=== PATIENT | male | born 1955 | race Caucasian/White ===

== ENCOUNTER 2023-05-05 15:11 | Inpatient (IN) | payer OTHER ==
[2023-05-05 15:59] LABS: #Basophils 0.1 thou/uL (0.0-0.2); #Eosinphils 0.2 thou/uL (0.0-0.7); #Monocytes 0.7 thou/uL (0.11-0.59); #Neutrophils 6.6 thou/uL (1.40-6.50); %Basophils 0.6 % (0.0-1.0); %Eosinophils 1.8 % (0.0-10.0); %Lymphocytes 24.1 % (21.0-51.0); %Monocytes 6.9 % (0.0-10.0); %Neutrophils 66.2 % (42.0-75.0); Hematocrit 43.1 % (42.0-52.0); Hemoglobin 14.2 g/dL (14.0-18.0); Mean Corpuscular HGB CONC 32.9 g/dL (32.0-36.0); Mean Corpuscular Hemoglobin 30.9 pg (27.0-31.0); Mean Corpuscular Volume 93.7 fl (78.0-98.0); Mean Platelet Volume 9.7 fL (7.4-10.4); Platelet Count 255 10x3/uL (130-400); RBC Distribution Width 12.5 % (11.5-14.5)
[2023-05-05] MEDS ORDERED: LORazepam 2 MG/ML SYR.(CARPUJECT) ONE ×2 (16:24→19:20)
[2023-05-05 16:28] LABS: ALT (SGPT) 23 U/L (8-55); AST (SGOT) 22 U/L (5-34); Albumin 4.6 g/dL (3.4-4.8); Alkaline Phosphatase 85 U/L (40-110); Anion Gap 12 mmol/L (10-20); BUN (Urea Nitrogen) 19 mg/dL (8.4-25.7); Bilirubin, Total 0.5 mg/dL (0.2-1.2); Calc. Creatinine Clearance 0 mL/min (70-130); Calcium 9.7 mg/dL (7.8-10.44); Carbon Dioxide 23 mmol/L (23-31); Chloride 106 mmol/L (98-107); Estimated GFR 65; Globulin 2.3 g/dL (2.4-3.5); Glucose 90 mg/dL (80-115); Potassium 3.9 mmol/L (3.5-5.1); Protein, Total 6.9 g/dL (5.8-8.1); Sodium 137 mmol/L (136-145)
[2023-05-05 16:32] LABS: Troponin I Less than 0.010 ng/mL (< 0.028)
[2023-05-05 18:39] LABS: Bacteria/HPF None Seen HPF (None Seen); Bilirubin Negative (Negative); Blood, Urine Negative (Negative); CAUTI Indications for Culture Alt mental st,lethar; Clarity Clear (Clear); Glucose, Urine (Dipstick) 70 mg/dL (Negative); Ketone, Urine Negative (Negative); Leukocyte Negative Leu/uL (Negative); Nitrite Negative (Negative); Protein, Urine (Dipstick) Negative (Neg-Trace); RBC/HPF None Seen HPF (0-3); Specific Gravity, Urine 1.023 (1.002-1.036); Squamous Epithelial None Seen HPF (0-3); Urobilinogen Normal mg/dL (Less than 2); WBC/HPF 0-3 HPF (0-3)
[2023-05-05 18:47] LABS: Amphetamine Detected (NotDetected); Barbiturates Screen Not Detected (NotDetected); Benzodiazepine Screen Not Detected (NotDetected); Cocaine Metabolite Screen Not Detected (NotDetected); Methadone Not Detected (NotDetected); Methamphetamine Detected (NotDetected); Opiate Screen Not Detected (NotDetected); Oxycodone Screen Not Detected (NotDetected); Phencyclidine (PCP) Not Detected (NotDetected); THC/Cannabinoid Screen Not Detected (NotDetected); Tricyclic Screen Not Detected (NotDetected)
[2023-05-05 18:52] LABS: Urine Culture Reflex No No
[2023-05-05] MEDS ORDERED: Sodium Chloride 0.9% 1,000 ML IV SCH (20:45)
[2023-05-05] MEDS ORDERED: Acetaminophen 325 MG TAB PO PRN (22:23)
[2023-05-05] MEDS ORDERED: Ondansetron PF 4 MG/2 ML Vial IVP PRN (22:23)
[2023-05-05] MEDS ORDERED: Dexmedetomidine In 0.9 % NaCl 100 ML IVPB SCH (22:30)
[2023-05-06] MEDS: Ipratropium/Albuterol 3 ML NEB NEB SCH ×2 (02:15→07:26)
[2023-05-06] MEDS ORDERED: hydrALAZINE 20 MG/ML VIAL SLOW IVP PRN (02:39)
[2023-05-06] MEDS ORDERED: Labetalol HCl 100 MG/20 ML VIAL SLOW IVP PRN (02:39)
[2023-05-06] MEDS ORDERED: Sodium Chloride 0.9% 1,000 ML IV SCH (03:00)
[2023-05-06] MEDS: Nicotine 14 MG PATCH TD SCH (03:50)
[2023-05-06 05:06] LABS: #Basophils 0.1 thou/uL (0.0-0.2); #Eosinphils 0.2 thou/uL (0.0-0.7); #Monocytes 0.9 thou/uL (0.11-0.59); #Neutrophils 6.7 thou/uL (1.40-6.50); %Basophils 0.6 % (0.0-1.0); %Eosinophils 1.5 % (0.0-10.0); %Lymphocytes 26.7 % (21.0-51.0); %Monocytes 8.4 % (0.0-10.0); %Neutrophils 62.5 % (42.0-75.0); Hematocrit 41.2 % (42.0-52.0); Hemoglobin 13.4 g/dL (14.0-18.0); Mean Corpuscular HGB CONC 32.5 g/dL (32.0-36.0); Mean Corpuscular Hemoglobin 30.1 pg (27.0-31.0); Mean Corpuscular Volume 92.6 fl (78.0-98.0); Mean Platelet Volume 9.7 fL (7.4-10.4); Platelet Count 248 10x3/uL (130-400); RBC Distribution Width 12.4 % (11.5-14.5); Red Blood Cell (RBC) Count 4.45 mill/uL (4.70-6.10); White Blood Cell (WBC) Count 10.7 10x3/uL (4.8-10.8)
[2023-05-06 05:12] LABS: Hemoglobin A1c 5.7 % (4.0-6.0)
[2023-05-06 05:37] LABS: Anion Gap 17 mmol/L (10-20); BUN (Urea Nitrogen) 20 mg/dL (8.4-25.7); Calc. Creatinine Clearance 58 mL/min (70-130); Calcium 9.1 mg/dL (7.8-10.44); Carbon Dioxide 18 mmol/L (23-31); Cardiac Risk 4.7 (Less than 4.5); Chloride 107 mmol/L (98-107); Cholesterol 207 mg/dl (< 200 Desired); Estimated GFR 72; Glucose 92 mg/dL (80-115); HDL Cholesterol 44 mg/dL (>60 Neg Risk); LDL Cholesterol, Calculated 145 mg/dL; Potassium 3.9 mmol/L (3.5-5.1); Sodium 138 mmol/L (136-145); Triglycerides 88 mg/dL (Less than 150)
[2023-05-06] MEDS ORDERED: Ipratropium/Albuterol 3 ML NEB NEB PRN (10:25)
[2023-05-06] MEDS: Aspirin 81 mg Enteric Coated Tablet PO SCH (11:03)
[2023-05-06] MEDS: Famotidine/PF 20 mg/2ml Vial SLOW IVP SCH ×2 (11:21→20:14)
[2023-05-06] MEDS: Dexmedetomidine 400 MCG, Admixture Fee 1 EACH in Sodium Chloride 0.9% 96 ML IVPB SCH (18:17)
[2023-05-06] MEDS: Atorvastatin Calcium 40 MG TAB PO SCH (20:14)
[2023-05-06] MEDS ORDERED: OLANZapine 10 MG VIAL IM SCH (21:00)
[2023-05-06] MEDS ORDERED: Sterile Water 10 ML VIAL FS PRN (21:15)
[2023-05-07] MEDS: Nicotine 14 MG PATCH TD SCH (03:22)
[2023-05-07 04:13] LABS: #Basophils 0.1 thou/uL (0.0-0.2); #Eosinphils 0.2 thou/uL (0.0-0.7); #Monocytes 1.4 thou/uL (0.11-0.59); #Neutrophils 7.7 thou/uL (1.40-6.50); %Basophils 0.6 % (0.0-1.0); %Eosinophils 1.5 % (0.0-10.0); %Lymphocytes 28.4 % (21.0-51.0); %Monocytes 10.6 % (0.0-10.0); %Neutrophils 58.7 % (42.0-75.0); Hematocrit 45.2 % (42.0-52.0); Hemoglobin 14.5 g/dL (14.0-18.0); Mean Corpuscular HGB CONC 32.1 g/dL (32.0-36.0); Mean Corpuscular Hemoglobin 29.8 pg (27.0-31.0); Mean Platelet Volume 9.6 fL (7.4-10.4); Platelet Count 228 10x3/uL (130-400); RBC Distribution Width 12.3 % (11.5-14.5); Red Blood Cell (RBC) Count 4.86 mill/uL (4.70-6.10); White Blood Cell (WBC) Count 13.1 10x3/uL (4.8-10.8)
[2023-05-07 04:38] LABS: Anion Gap 16 mmol/L (10-20); BUN (Urea Nitrogen) 23 mg/dL (8.4-25.7); Calc. Creatinine Clearance 62 mL/min (70-130); Calcium 9.7 mg/dL (7.8-10.44); Carbon Dioxide 16 mmol/L (23-31); Chloride 110 mmol/L (98-107); Estimated GFR 77; Glucose 70 mg/dL (80-115); Potassium 4.7 mmol/L (3.5-5.1); Sodium 137 mmol/L (136-145)
[2023-05-07] MEDS: Aspirin 81 mg Enteric Coated Tablet PO SCH (08:19)
[2023-05-07] MEDS: Famotidine/PF 20 mg/2ml Vial SLOW IVP SCH ×2 (08:19→20:11)
[2023-05-07] MEDS: Dexmedetomidine 400 MCG, Admixture Fee 1 EACH in Sodium Chloride 0.9% 96 ML IVPB SCH (09:37)
[2023-05-07] MEDS: Lorazepam 2 MG/ML VIAL SLOW IVP PRN ×2 (16:31→23:37)
[2023-05-07] MEDS: Dextrose 5 %-0.45 % NaCl 1,000 ML IV SCH (17:04)
[2023-05-07] MEDS: Atorvastatin Calcium 40 MG TAB PO SCH (20:09)
[2023-05-08] MEDS: Dextrose 5 %-0.45 % NaCl 1,000 ML IV SCH ×2 (02:24→15:52)
[2023-05-08] MEDS: Dexmedetomidine 400 MCG, Admixture Fee 1 EACH in Sodium Chloride 0.9% 96 ML IVPB SCH (02:24)
[2023-05-08] MEDS: Nicotine 14 MG PATCH TD SCH (02:24)
[2023-05-08 07:03] LABS: #Basophils 0.1 thou/uL (0.0-0.2); #Eosinphils 0.3 thou/uL (0.0-0.7); #Monocytes 0.8 thou/uL (0.11-0.59); #Neutrophils 4.2 thou/uL (1.40-6.50); %Basophils 0.8 % (0.0-1.0); %Eosinophils 3.2 % (0.0-10.0); %Lymphocytes 31.7 % (21.0-51.0); %Monocytes 9.8 % (0.0-10.0); %Neutrophils 54.4 % (42.0-75.0); Hematocrit 43.6 % (42.0-52.0); Hemoglobin 14.3 g/dL (14.0-18.0); Mean Corpuscular HGB CONC 32.8 g/dL (32.0-36.0); Mean Corpuscular Hemoglobin 30.4 pg (27.0-31.0); Mean Corpuscular Volume 92.8 fl (78.0-98.0); Mean Platelet Volume 9.7 fL (7.4-10.4); Platelet Count 226 10x3/uL (130-400); RBC Distribution Width 12.2 % (11.5-14.5); White Blood Cell (WBC) Count 7.7 10x3/uL (4.8-10.8)
[2023-05-08 07:40] LABS: Anion Gap 12 mmol/L (10-20); BUN (Urea Nitrogen) 17 mg/dL (8.4-25.7); Calc. Creatinine Clearance 68 mL/min (70-130); Calcium 9.4 mg/dL (7.8-10.44); Carbon Dioxide 19 mmol/L (23-31); Chloride 109 mmol/L (98-107); Estimated GFR 89; Glucose 85 mg/dL (80-115); Potassium 3.3 mmol/L (3.5-5.1); Sodium 137 mmol/L (136-145)
[2023-05-08] MEDS: Aspirin 81 mg Enteric Coated Tablet PO SCH (08:03)
[2023-05-08] MEDS: Famotidine/PF 20 mg/2ml Vial SLOW IVP SCH ×2 (08:03→20:21)
[2023-05-08] MEDS: Lorazepam 2 MG/ML VIAL SLOW IVP PRN ×3 (11:00→21:35)
[2023-05-08] MEDS ORDERED: Lorazepam 2 MG/ML VIAL SLOW IVP SCH (11:45)
[2023-05-08 12:09] LABS: ALT (SGPT) 21 U/L (8-55); AST (SGOT) 33 U/L (5-34); Alkaline Phosphatase 76 U/L (40-110); Bilirubin, Direct 0.2 mg/dL (0.1-0.3); Bilirubin, Total 0.5 mg/dL (0.2-1.2); Protein, Total 6.5 g/dL (5.8-8.1)
[2023-05-08 12:47] LABS: PTT 29.8 sec (22.9-36.1)
[2023-05-08 12:49] LABS: D-Dimer Test 0.62 *mcg/mL (0.27-0.43)
[2023-05-08 12:51] LABS: Troponin I Less than 0.010 ng/mL (< 0.028)
[2023-05-08 13:18] LABS: Actual Bicarbonate (HCO3v) 18.2 mEq/L (22-28); Base Excess -5.7 mEq/L (-2.0 to +3.0); Chloride (VBG) 107 mmol/L (98-106); Hematocrit-VBG 46 % (42.0-52.0); Hemoglobin (Hb) 15.8 g/dL (12.6-17.4); Potassium (VBG) 3.68 mmol/L (3.70-5.30); Sodium 140 mmol/L (133-146); pH (venous) 7.378 (7.32-7.43)
[2023-05-08] MEDS ORDERED: OLANZapine 10 MG VIAL IM SCH (19:45)
[2023-05-08] MEDS ORDERED: Sterile Water 10 ML VIAL FS PRN (20:00)
[2023-05-08] MEDS: Atorvastatin Calcium 40 MG TAB PO SCH (20:21)
[2023-05-08] MEDS ORDERED: Lorazepam 2 MG/ML VIAL SLOW IVP PRN (22:37)
[2023-05-09] MEDS: Dextrose 5 %-0.45 % NaCl 1,000 ML IV SCH ×3 (00:38→20:28)
[2023-05-09] MEDS: Nicotine 14 MG PATCH TD SCH (03:05)
[2023-05-09] MEDS: Dexmedetomidine 400 MCG, Admixture Fee 1 EACH in Sodium Chloride 0.9% 96 ML IVPB SCH ×2 (03:05→21:14)
[2023-05-09 04:09] LABS: Hematocrit 39.2 % (42.0-52.0); Hemoglobin 12.8 g/dL (14.0-18.0); Mean Corpuscular HGB CONC 32.7 g/dL (32.0-36.0); Mean Corpuscular Hemoglobin 31.1 pg (27.0-31.0); Mean Corpuscular Volume 95.1 fl (78.0-98.0); Mean Platelet Volume 10.3 fL (7.4-10.4); Platelet Count 152 10x3/uL (130-400); RBC Distribution Width 12.4 % (11.5-14.5); Red Blood Cell (RBC) Count 4.12 mill/uL (4.70-6.10)
[2023-05-09 04:17] LABS: Delete Auto Diff?? YES; Manual Diff?? YES
[2023-05-09 04:51] LABS: Anion Gap 15 mmol/L (10-20); BUN (Urea Nitrogen) 12 mg/dL (8.4-25.7); Calc. Creatinine Clearance 73 mL/min (70-130); Calcium 9.4 mg/dL (7.8-10.44); Carbon Dioxide 14 mmol/L (23-31); Chloride 112 mmol/L (98-107); Estimated GFR 94; Glucose 103 mg/dL (80-115); Magnesium 1.9 mg/dL (1.6-2.6); Potassium 4.2 mmol/L (3.5-5.1); Sodium 137 mmol/L (136-145)
[2023-05-09 05:07] LABS: CellaVision Operator ID lab.sh2; Lymphocytes 15 % (21-51); Neutrophil 85 % (42-75); Platelet Adequacy Comment Platelets Normal; RBC Morphology Within Normal Limits; Smudge Cells 7.8 %; Total Cell Count 102
[2023-05-09] MEDS: Aspirin 81 mg Enteric Coated Tablet PO SCH (08:28)
[2023-05-09] MEDS: Famotidine/PF 20 mg/2ml Vial SLOW IVP SCH ×2 (08:28→20:28)
[2023-05-09 11:49] LABS: Actual Bicarbonate (HCO3v) 16.5 mEq/L (22-28); Base Excess -5.6 mEq/L (-2.0 to +3.0); Calcium, Ionized (venous) 1.06 mmol/L (1.16-1.32); Chloride (VBG) 108 mmol/L (98-106); Hematocrit-VBG 47 % (42.0-52.0); Hemoglobin (Hb) 16.1 g/dL (12.6-17.4); Potassium (VBG) 4.81 mmol/L (3.70-5.30); Sodium 137 mmol/L (133-146); pH (venous) 7.434 (7.32-7.43)
[2023-05-09 12:12] LABS: Troponin I Less than 0.010 ng/mL (< 0.028)
[2023-05-09] MEDS: Lorazepam 2 MG/ML VIAL SLOW IVP PRN ×2 (13:57→21:14)
[2023-05-09] MEDS ORDERED: Digoxin 0.5 MG/2 ML AMP SLOW IVP SCH (14:00)
[2023-05-09] MEDS: Atorvastatin Calcium 40 MG TAB PO SCH (20:28)
[2023-05-09] MEDS: Morphine 2 MG/ML VIAL SLOW IVP PRN (23:12)
[2023-05-10] MEDS: Nicotine 14 MG PATCH TD SCH (02:24)
[2023-05-10] MEDS: Morphine 2 MG/ML VIAL SLOW IVP PRN ×3 (03:20→21:30)
[2023-05-10] MEDS: Dextrose 5 %-0.45 % NaCl 1,000 ML IV SCH (05:49)
[2023-05-10 06:38] LABS: #Eosinphils 0.3 thou/uL (0.0-0.7); #Monocytes 0.8 thou/uL (0.11-0.59); #Neutrophils 5.4 thou/uL (1.40-6.50); %Basophils 0.5 % (0.0-1.0); %Eosinophils 3.2 % (0.0-10.0); %Lymphocytes 22.9 % (21.0-51.0); %Monocytes 9.8 % (0.0-10.0); %Neutrophils 63.2 % (42.0-75.0); Hematocrit 43.7 % (42.0-52.0); Hemoglobin 14.3 g/dL (14.0-18.0); Mean Corpuscular HGB CONC 32.7 g/dL (32.0-36.0); Mean Corpuscular Hemoglobin 30.6 pg (27.0-31.0); Mean Corpuscular Volume 93.4 fl (78.0-98.0); Mean Platelet Volume 9.9 fL (7.4-10.4); Platelet Count 230 10x3/uL (130-400); RBC Distribution Width 12.6 % (11.5-14.5); Red Blood Cell (RBC) Count 4.68 mill/uL (4.70-6.10); White Blood Cell (WBC) Count 8.6 10x3/uL (4.8-10.8)
[2023-05-10 07:07] LABS: Phosphorus 2.7 mg/dL (2.3-4.7)
[2023-05-10 07:10] LABS: Anion Gap 10 mmol/L (10-20); BUN (Urea Nitrogen) 8 mg/dL (8.4-25.7); Calc. Creatinine Clearance 68 mL/min (70-130); Calcium 8.8 mg/dL (7.8-10.44); Carbon Dioxide 22 mmol/L (23-31); Chloride 110 mmol/L (98-107); Estimated GFR 89; Glucose 89 mg/dL (80-115); Magnesium 1.7 mg/dL (1.6-2.6); Potassium 3.7 mmol/L (3.5-5.1); Sodium 138 mmol/L (136-145)
[2023-05-10] MEDS: Famotidine/PF 20 mg/2ml Vial SLOW IVP SCH ×2 (08:23→21:33)
[2023-05-10] MEDS: Aspirin 81 mg Enteric Coated Tablet PO SCH (08:24)
[2023-05-10] MEDS ORDERED: Digoxin 0.25 MG TAB PO SCH (09:00)
[2023-05-10] MEDS ORDERED: Magnesium 2 GM/50 ML(in water) 2 GM in Premix 1 BAG IVPB SCH (10:45)
[2023-05-10] MEDS ORDERED: dilTIAZem 125 MG, Admixture Fee 1 EACH in Sodium Chloride 0.9% 100 ML IVPB SCH (12:00)
[2023-05-10] MEDS ORDERED: dilTIAZem 25 MG/5 ML VIAL SLOW IVP SCH (12:00)
[2023-05-10] MEDS ORDERED: dilTIAZem 125 MG in Sodium Chloride 0.9% 100 ML IVPB SCH (12:00)
[2023-05-10] MEDS: D5W-AA 4.25% with LYTES 1,000 ML IV SCH (12:49)
[2023-05-10] MEDS: Lorazepam 2 MG/ML VIAL SLOW IVP PRN ×2 (15:16→19:28)
[2023-05-10] MEDS: Atorvastatin Calcium 40 MG TAB PO SCH (20:25)
[2023-05-11] MEDS: Lorazepam 2 MG/ML VIAL SLOW IVP PRN ×5 (00:04→21:50)
[2023-05-11] MEDS: Nicotine 14 MG PATCH TD SCH (04:03)
[2023-05-11] MEDS: D5W-AA 4.25% with LYTES 1,000 ML IV SCH ×2 (04:24→12:23)
[2023-05-11 05:07] LABS: #Eosinphils 0.2 thou/uL (0.0-0.7); #Monocytes 0.9 thou/uL (0.11-0.59); #Neutrophils 6.6 thou/uL (1.40-6.50); %Basophils 0.4 % (0.0-1.0); %Eosinophils 1.8 % (0.0-10.0); %Lymphocytes 18.3 % (21.0-51.0); %Monocytes 9.2 % (0.0-10.0); %Neutrophils 70.1 % (42.0-75.0); Hematocrit 39.1 % (42.0-52.0); Hemoglobin 12.9 g/dL (14.0-18.0); Mean Corpuscular Hemoglobin 29.9 pg (27.0-31.0); Mean Corpuscular Volume 90.7 fl (78.0-98.0); Mean Platelet Volume 10.2 fL (7.4-10.4); Platelet Count 224 10x3/uL (130-400); RBC Distribution Width 12.3 % (11.5-14.5); Red Blood Cell (RBC) Count 4.31 mill/uL (4.70-6.10); White Blood Cell (WBC) Count 9.4 10x3/uL (4.8-10.8)
[2023-05-11 05:17] LABS: Anion Gap 13 mmol/L (10-20); BUN (Urea Nitrogen) 12 mg/dL (8.4-25.7); Calc. Creatinine Clearance 71 mL/min (70-130); Calcium 9.1 mg/dL (7.8-10.44); Carbon Dioxide 20 mmol/L (23-31); Chloride 108 mmol/L (98-107); Estimated GFR 93; Glucose 107 mg/dL (80-115); Potassium 3.4 mmol/L (3.5-5.1); Sodium 138 mmol/L (136-145)
[2023-05-11 05:23] LABS: Phosphorus 3.5 mg/dL (2.3-4.7)
[2023-05-11] MEDS: Famotidine/PF 20 mg/2ml Vial SLOW IVP SCH ×2 (08:36→21:48)
[2023-05-11] MEDS: Morphine 2 MG/ML VIAL SLOW IVP PRN ×4 (08:36→21:49)
[2023-05-11] MEDS: Aspirin 81 mg Enteric Coated Tablet PO SCH (08:37)
[2023-05-11] MEDS: Digoxin 0.125 MG TAB PO SCH (08:37)
[2023-05-11] MEDS: Dexmedetomidine 400 MCG, Admixture Fee 1 EACH in Sodium Chloride 0.9% 96 ML IVPB SCH (08:49)
[2023-05-11] MEDS: Atorvastatin Calcium 40 MG TAB PO SCH (21:30)
[2023-05-12] MEDS: Nicotine 14 MG PATCH TD SCH (02:45)
[2023-05-12] MEDS: Morphine 2 MG/ML VIAL SLOW IVP PRN ×2 (02:45→12:15)
[2023-05-12] MEDS: Lorazepam 2 MG/ML VIAL SLOW IVP PRN ×3 (02:45→19:51)
[2023-05-12 04:12] LABS: #Basophils 0.1 thou/uL (0.0-0.2); #Eosinphils 0.4 thou/uL (0.0-0.7); #Monocytes 0.8 thou/uL (0.11-0.59); #Neutrophils 7.4 thou/uL (1.40-6.50); %Basophils 0.5 % (0.0-1.0); %Eosinophils 3.6 % (0.0-10.0); %Lymphocytes 15.4 % (21.0-51.0); %Monocytes 7.8 % (0.0-10.0); %Neutrophils 72.4 % (42.0-75.0); Hematocrit 40.9 % (42.0-52.0); Hemoglobin 13.5 g/dL (14.0-18.0); Mean Corpuscular Hemoglobin 30.1 pg (27.0-31.0); Mean Corpuscular Volume 91.1 fl (78.0-98.0); Mean Platelet Volume 9.9 fL (7.4-10.4); Platelet Count 226 10x3/uL (130-400); RBC Distribution Width 12.4 % (11.5-14.5); Red Blood Cell (RBC) Count 4.49 mill/uL (4.70-6.10); White Blood Cell (WBC) Count 10.3 10x3/uL (4.8-10.8)
[2023-05-12 04:33] LABS: Phosphorus 3.3 mg/dL (2.3-4.7)
[2023-05-12 04:34] LABS: Anion Gap 14 mmol/L (10-20); BUN (Urea Nitrogen) 19 mg/dL (8.4-25.7); Calc. Creatinine Clearance 80 mL/min (70-130); Calcium 9.1 mg/dL (7.8-10.44); Carbon Dioxide 21 mmol/L (23-31); Chloride 105 mmol/L (98-107); Digoxin 0.27 ng/mL (0.8-2.0); Estimated GFR 96; Glucose 92 mg/dL (80-115); Potassium 3.5 mmol/L (3.5-5.1); Sodium 136 mmol/L (136-145)
[2023-05-12] MEDS: D5W-AA 4.25% with LYTES 1,000 ML IV SCH ×2 (05:34→14:38)
[2023-05-12] MEDS ORDERED: Digoxin 0.25 MG TAB PO SCH (09:00)
[2023-05-12] MEDS ORDERED: Digoxin 0.125 MG TAB PO SCH (09:06)
[2023-05-12] MEDS: Famotidine/PF 20 mg/2ml Vial SLOW IVP SCH ×2 (11:14→20:09)
[2023-05-12] MEDS: Aspirin 81 mg Enteric Coated Tablet PO SCH (11:14)
[2023-05-12] MEDS: Digoxin 0.125 MG TAB PO SCH (11:43)
[2023-05-12 14:07] VITALS: BP 129/100
[2023-05-12] MEDS: Atorvastatin Calcium 40 MG TAB PO SCH (20:09)
[2023-05-13] MEDS: Morphine 2 MG/ML VIAL SLOW IVP PRN ×2 (01:39→10:42)
[2023-05-13] MEDS: D5W-AA 4.25% with LYTES 1,000 ML IV SCH ×2 (01:40→14:56)
[2023-05-13] MEDS: Nicotine 14 MG PATCH TD SCH (01:40)
[2023-05-13 05:01] LABS: #Basophils 0.1 thou/uL (0.0-0.2); #Eosinphils 0.2 thou/uL (0.0-0.7); #Neutrophils 10.4 thou/uL (1.40-6.50); %Basophils 0.4 % (0.0-1.0); %Eosinophils 1.8 % (0.0-10.0); %Lymphocytes 11.3 % (21.0-51.0); %Monocytes 7.8 % (0.0-10.0); %Neutrophils 78.4 % (42.0-75.0); Hematocrit 42.7 % (42.0-52.0); Hemoglobin 14.5 g/dL (14.0-18.0); Mean Corpuscular Hemoglobin 30.8 pg (27.0-31.0); Mean Corpuscular Volume 90.7 fl (78.0-98.0); Mean Platelet Volume 10.1 fL (7.4-10.4); Platelet Count 250 10x3/uL (130-400); RBC Distribution Width 12.3 % (11.5-14.5); Red Blood Cell (RBC) Count 4.71 mill/uL (4.70-6.10); White Blood Cell (WBC) Count 13.3 10x3/uL (4.8-10.8)
[2023-05-13 05:23] LABS: Phosphorus 3.6 mg/dL (2.3-4.7)
[2023-05-13 05:26] LABS: Anion Gap 13 mmol/L (10-20); BUN (Urea Nitrogen) 23 mg/dL (8.4-25.7); Calc. Creatinine Clearance 75 mL/min (70-130); Calcium 9.5 mg/dL (7.8-10.44); Carbon Dioxide 23 mmol/L (23-31); Chloride 101 mmol/L (98-107); Estimated GFR 95; Glucose 103 mg/dL (80-115); Magnesium 2.2 mg/dL (1.6-2.6); Potassium 3.9 mmol/L (3.5-5.1); Sodium 133 mmol/L (136-145)
[2023-05-13 07:48] VITALS: TEMP 97.8
[2023-05-13] MEDS ORDERED: Digoxin 0.5 MG/2 ML AMP SLOW IVP SCH (09:00)
[2023-05-13 09:44] VITALS: BMI 19.9
[2023-05-13] MEDS: Aspirin 81 mg Enteric Coated Tablet PO SCH (10:43)
[2023-05-13] MEDS: Famotidine/PF 20 mg/2ml Vial SLOW IVP SCH (10:43)
[2023-05-13] MEDS: Lorazepam 2 MG/ML VIAL SLOW IVP PRN (14:55)
== END 2023-05-13 15:01 | disposition hospice, inpatient (51) | DRG 64 ==
LOC: ERS 15:11 → ERHOLD 20:23 → IMCU/EMU 05-06 01:47
PROVIDERS: ADMIT Internal Medicine; ATTEND Family Medicine
PROC: 0T9B70Z Drainage of Bladder with Drainage Device, Via Natural or Artificial Opening (ICD-10-PCS; principal; 2023-05-05)
PROC: 4A00X4Z Measurement of Central Nervous Electrical Activity, External Approach (ICD-10-PCS; 2023-05-06)
PROC: 4A133R1 Monitoring of Arterial Saturation, Peripheral, Percutaneous Approach (ICD-10-PCS; 2023-05-08)
DX: I63.9 Cerebral infarction, unspecified (principal); G92.8 Other toxic encephalopathy; I48.19 Other persistent atrial fibrillation; Z51.5 Encounter for palliative care; Z66 Do not resuscitate; E78.00 Pure hypercholesterolemia, unspecified; F15.10 Other stimulant abuse, uncomplicated; J43.9 Emphysema, unspecified; Z98.890 Other specified postprocedural states; F17.210 Nicotine dependence, cigarettes, uncomplicated; F03.90 Unspecified dementia, unspecified severity, without behavioral disturbance, psychotic disturbance, mood disturbance, and anxiety; Z91.148 Patient's other noncompliance with medication regimen for other reason; Z79.82 Long term (current) use of aspirin; Z79.899 Other long term (current) drug therapy; D72.829 Elevated white blood cell count, unspecified; R00.1 Bradycardia, unspecified
CPT/HCPCS: 36415; 36416; 51701; 70450; 71045; 80048; 80053; 80061; 80076; 80162; 80306; 81001; 82805; 83036; 83605; 83735; 83880; 84100; 84145; 84484; 85025; 85379; 85610; 85730; 86850; 86900; 86901; 87040; 93005; 93010; 93306; 93880; 94640; 95711; 95819; 96361; 96365; 96375; 96376; J1160; J1650; J2060; J2272; J3475; J3490; J7042; J7050; J7620; S0028

== ENCOUNTER 2023-05-13 15:22 | Inpatient (IN) | payer OTHER ==
[2023-05-13 16:03] VITALS: BMI 20.6
[2023-05-13] MEDS ORDERED: Acetaminophen 650 MG Suppository PR PRN (16:15)
[2023-05-13] MEDS ORDERED: Scopolamine 1 mg/72 hour Patch TOP PRN (16:16)
[2023-05-13] MEDS ORDERED: diphenhydrAMINE 25 MG CAP PO PRN (16:16)
[2023-05-13] MEDS ORDERED: Haloperidol 1 MG TAB PO PRN (16:17)
[2023-05-13] MEDS ORDERED: Ondansetron PF 4 MG/2 ML Vial IVP PRN (16:17)
[2023-05-13] MEDS: Dexmedetomidine 400 MCG, Admixture Fee 1 EACH in Sodium Chloride 0.9% 96 ML IVPB SCH (17:05)
[2023-05-13] MEDS: Morphine 2 MG/ML VIAL SLOW IVP PRN (18:09)
[2023-05-13] MEDS: Morphine 2 MG/ML VIAL SLOW IVP SCH (22:30)
[2023-05-13] MEDS: Lorazepam 2 MG/ML VIAL SLOW IVP SCH (23:49)
[2023-05-14] MEDS: Lorazepam 2 MG/ML VIAL SLOW IVP PRN ×3 (02:23→20:57)
[2023-05-14] MEDS: Morphine 2 MG/ML VIAL SLOW IVP SCH ×3 (05:44→23:13)
[2023-05-14] MEDS: Lorazepam 2 MG/ML VIAL SLOW IVP SCH ×3 (06:30→23:14)
[2023-05-14] MEDS: Morphine 2 MG/ML VIAL SLOW IVP PRN ×2 (16:54→20:56)
[2023-05-14] MEDS: Dexmedetomidine 400 MCG, Admixture Fee 1 EACH in Sodium Chloride 0.9% 96 ML IVPB SCH (17:02)
[2023-05-15] MEDS: Morphine 2 MG/ML VIAL SLOW IVP PRN ×3 (03:37→20:32)
[2023-05-15] MEDS: Lorazepam 2 MG/ML VIAL SLOW IVP PRN ×4 (03:38→20:32)
[2023-05-15] MEDS: Morphine 2 MG/ML VIAL SLOW IVP SCH ×3 (05:55→22:59)
[2023-05-15] MEDS: Lorazepam 2 MG/ML VIAL SLOW IVP SCH ×3 (05:56→22:59)
[2023-05-15] MEDS: Dexmedetomidine 400 MCG, Admixture Fee 1 EACH in Sodium Chloride 0.9% 96 ML IVPB SCH (20:33)
[2023-05-16] MEDS: Morphine 2 MG/ML VIAL SLOW IVP PRN ×4 (02:21→19:28)
[2023-05-16] MEDS: Lorazepam 2 MG/ML VIAL SLOW IVP PRN ×4 (02:21→19:29)
[2023-05-16] MEDS: Morphine 2 MG/ML VIAL SLOW IVP SCH ×3 (06:14→22:09)
[2023-05-16] MEDS: Lorazepam 2 MG/ML VIAL SLOW IVP SCH ×3 (06:14→22:09)
[2023-05-16] MEDS: Dexmedetomidine 400 MCG, Admixture Fee 1 EACH in Sodium Chloride 0.9% 96 ML IVPB SCH (10:21)
[2023-05-17] MEDS: Morphine 2 MG/ML VIAL SLOW IVP PRN (03:08)
[2023-05-17] MEDS: Lorazepam 2 MG/ML VIAL SLOW IVP PRN (03:09)
[2023-05-17] MEDS: Morphine 2 MG/ML VIAL SLOW IVP SCH (06:06)
[2023-05-17] MEDS: Lorazepam 2 MG/ML VIAL SLOW IVP SCH ×5 (06:06→23:30)
[2023-05-17] MEDS: Dexmedetomidine 400 MCG, Admixture Fee 1 EACH in Sodium Chloride 0.9% 96 ML IVPB SCH (08:53)
[2023-05-17] MEDS: Morphine 4 MG/ML VIAL SLOW IVP SCH ×4 (11:33→23:30)
[2023-05-17] MEDS: Haloperidol Lactate 5 MG/ML VIAL SLOW IVP PRN (11:33)
[2023-05-18] MEDS: Lorazepam 2 MG/ML VIAL SLOW IVP SCH ×5 (03:31→18:15)
[2023-05-18] MEDS: Morphine 4 MG/ML VIAL SLOW IVP SCH ×5 (03:31→18:15)
[2023-05-18] MEDS: Morphine 2 MG/ML VIAL SLOW IVP PRN (10:12)
[2023-05-18] MEDS: Haloperidol Lactate 5 MG/ML VIAL SLOW IVP PRN (15:24)
[2023-05-19] MEDS: Morphine 4 MG/ML VIAL SLOW IVP SCH ×8 (00:10→23:00)
[2023-05-19] MEDS: Lorazepam 2 MG/ML VIAL SLOW IVP SCH ×8 (00:10→23:01)
[2023-05-19] MEDS ORDERED: Morphine 4 MG/ML VIAL SLOW IVP PRN (14:30)
[2023-05-19] MEDS ORDERED: Lorazepam 2 MG/ML VIAL SLOW IVP PRN ×2 (14:30→14:45)
[2023-05-19] MEDS ORDERED: Morphine 2 MG/ML VIAL SLOW IVP PRN (14:45)
[2023-05-20] MEDS: Lorazepam 2 MG/ML VIAL SLOW IVP SCH ×12 (00:39→22:20)
[2023-05-20] MEDS: Morphine 4 MG/ML VIAL SLOW IVP SCH ×12 (00:39→22:19)
[2023-05-21] MEDS: Lorazepam 2 MG/ML VIAL SLOW IVP SCH ×12 (00:15→22:19)
[2023-05-21] MEDS: Morphine 4 MG/ML VIAL SLOW IVP SCH ×12 (00:15→22:19)
[2023-05-22] MEDS: Morphine 4 MG/ML VIAL SLOW IVP SCH ×6 (00:23→10:10)
[2023-05-22] MEDS: Lorazepam 2 MG/ML VIAL SLOW IVP SCH ×6 (00:23→10:11)
[2023-05-22 07:44] VITALS: BP 103/73; TEMP 99.3
== END 2023-05-22 10:50 | disposition expired | DRG 951 ==
LOC: IMCU/EMU 15:22 → T4-A 05-17 22:46
PROVIDERS: ADMIT Family Medicine; ATTEND Family Medicine
DX: Z51.5 Encounter for palliative care (principal); G92.8 Other toxic encephalopathy; I63.9 Cerebral infarction, unspecified; I48.19 Other persistent atrial fibrillation; F15.10 Other stimulant abuse, uncomplicated
CPT/HCPCS: 36416; J1630; J2060; J2270; J2272; J3490